=== PATIENT | female | born 1960 | race Two or more races ===

== ENCOUNTER 2020-04-22 11:13 | Emergency (ER) | payer MEDICAID, OTHER ==
[~2020-04-22] VITALS: Ht 157.5 cm; Wt 59.0 kg
[2020-04-22] MEDS ORDERED: ETOMIDATE (2MG/ML) 20ML VIAL IV ONE (12:00)
[2020-04-22 12:30] VITALS: BP 166/52
[2020-04-22] MEDS ORDERED: SODIUM CHLORIDE 0.9% 1,000 ML IV ONE (13:00)
== END 2020-04-22 14:28 | disposition home or self-care (01) ==
LOC: EDBD 11:13 → ER 11:13
DX: S43.005A Unspecified dislocation of left shoulder joint, initial encounter (principal); S09.8XXA Other specified injuries of head, initial encounter; Y04.2XXA Assault by strike against or bumped into by another person, initial encounter; Y93.89 Activity, other specified; Y92.89 Other specified places as the place of occurrence of the external cause; Y99.8 Other external cause status
CPT/HCPCS: 23650; 70486; 73030; 96360; 96361; 99284; J7030

== ENCOUNTER 2024-10-03 16:12 | Emergency (ER) | payer OTHER, MEDICAID ==
[~2024-10-03] VITALS: Ht 152.4 cm; Wt 64.2 kg
[2024-10-03 16:40] VITALS: BP 157/64; PULSE 96; RESP 18; O2SAT 99
[2024-10-03] MEDS ORDERED: IBUPROFEN 600 MG TAB PO ONE (17:00)
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
== END 2024-10-03 19:08 | disposition left against medical advice (07) ==
LOC: ER 16:12
DX: M54.59 Other low back pain (principal); E11.9 Type 2 diabetes mellitus without complications; Z98.890 Other specified postprocedural states
CPT/HCPCS: 72100